=== PATIENT | female | born 1955 | race Caucasian/White ===

== ENCOUNTER → 2016-09-10 | Outpatient (CLI) | payer OTHER ==
--- NOTE | 2016-09-10 18:17 | MA ---
Screening Digital Mammogram with Digital Breast Tomosynthesis Clinical Indications: Routine screening. Technique: Standard cephalocaudal projections are obtained. Digital breast tomosynthesis was perform ed in the MLO projection with reconstruction at 1.0 mm slice thickness and composite MLO views recons tructed. This examination is processed by the CAD computer aided detection system. Comparison: June 04, 2015; March 28, 2014; and studies dating back to October 21, 2007. Breast density: D; The breasts are extremely dense, which lowers the sensitivity of mammography. Findings: CAD was reviewed. There are no new masses, new clusters of microcalcifications, or significant axillary lymphadenopathy . Impression: Negative mammogram. BI-RADS 1. Recommendation: Routine screening mammogram is recommended in one year. Dense mammographic pattern limits the sensitivity of mammography in this patient. If there is a clini tess palpable abnormality, recommend additional imaging with ultrasound if clinically indicated. [facility] will send a result letter to the patient. Negative mammography should not preclude additional workup of a clinically suspicious finding. The patient's information is entered into a reminder system with a target due date for her next mammo gram.
== END ==
LOC: FIMAGING 14:34
DX: Z12.31 Encounter for screening mammogram for malignant neoplasm of breast (principal)
CPT/HCPCS: G0202

== ENCOUNTER → 2017-07-06 | Outpatient (CLI) | payer OTHER ==
[~2017-07-06] MED LIST: IOPAMIDOL (ISOVUE-300) 100 ML BTL ONE
== END ==
LOC: FIMAGING 17:01
PROVIDERS: ATTEND Internal Medicine
DX: K59.00 Constipation, unspecified (principal); K57.30 Diverticulosis of large intestine without perforation or abscess without bleeding; K44.9 Diaphragmatic hernia without obstruction or gangrene; K58.9 Irritable bowel syndrome, unspecified
CPT/HCPCS: Q9967